=== PATIENT | male | born 1975 | race Two or more races ===

== ENCOUNTER 2019-06-06 11:41 | Emergency (ER) | payer OTHER ==
[~2019-06-06] VITALS: Ht 170.2 cm; Wt 72.6 kg
== END 2019-06-06 18:22 | disposition home or self-care (01) ==
LOC: ER 11:41
DX: K59.09 Other constipation (principal)

== ENCOUNTER 2019-07-05 12:20 | Emergency (ER) | payer OTHER ==
[~2019-07-05] VITALS: Ht 170.2 cm; Wt 72.6 kg
== END 2019-07-05 13:27 | disposition left against medical advice (07) ==
LOC: ER 12:20
DX: M54.5 Low back pain (principal)

== ENCOUNTER 2020-10-04 08:51 | Outpatient (CLI) | payer OTHER | END 2020-10-04 08:55 | disposition home or self-care (01) | LOC: RAD 08:51 | PROVIDERS: ATTEND General Practice | DX: R05 Cough (principal) ==